=== PATIENT | female | born 1955 | race Caucasian/White ===

== ENCOUNTER 2016-08-19 08:04 | Observation (INO) | payer OTHER ==
[~2016-08-19] VITALS: Ht 167.6 cm; Wt 96.6 kg
[~2016-08-19 08:04] MED LIST: ATIVAN0.5 MG PO; CRESTOR10 MG PO; CYMBALTA60 MG PO; DEXILANT60 MG; DULCOLAX STOOL100 MG PO; DURAGESIC25 MCG TD; FIORICET,ESG1 TABLET PO; FLEXERIL10 MG PO; HYDROCHLOROTHIA25 MG PO; LIDODERM 5% P1 PATCH TD; MIRALAX255 GM PO; MOBIC15 MG PO; OXYCODONE-ACET1 EACH PO; OXYCODONE-APAP1 EAC6 PO; PANTOPRAZOLE SO40 MG PO; SINGULAIR10 MG PO; SUMATRIPTAN SUC50 MG PO; TIZANIDINE HCL4 MG PO; TOPAMAX25 MG PO; TRAMADOL HCL50 MG PO; VITAMIN D-32000 UNIT PO; XANAX0.5 MG PO
[2016-08-19] MEDS ORDERED: VAGIFEM10 MCG VG (08:35)
[2016-08-19 08:36] LABS: BASOPHIL COUNT 0.1 K/uL (0-0.1); EOSINOPHIL (%) 1.6 % (0-5); EOSINOPHIL COUNT 0.1 K/uL (0-0.3); HEMATOCRIT 41.3 % (36.0-46.0); IMMATURE GRANULOCYTE (%) 0.2 % (0.0-0.7); INSTRUMENT ABS NEUTROPHIL CT 1.9 K/uL; LYMPHOCYTE COUNT 2.4 K/uL (1.0-2.8); MCH 28.8 PG (29.0-34.0); MCHC 32.9 G/DL (30.0-36.0); MCV 87.3 FL (83-99); MEAN PLAT.VOLUME 9.2 uM^3 (9.5-12.4); MONOCYTE (%) 9.4 % (3-12); MONOCYTE COUNT 0.5 K/uL (0-0.8); NEUTROPHIL COUNT 1.9 K/uL (1.8-6.4); PLATELET COUNT 236 K/uL (156-360); RBC DIS.WIDTH-CV 12.6 % (11.8-14.6); RBC DIS.WIDTH-SD 40.3 % (39-53); RED BLOOD COUNT 4.73 M/uL (3.80-5.20); WHITE BLOOD COUNT 4.9 K/uL (4.1-10.2)
[2016-08-19] MEDS ORDERED: TOPAMAX25 MG PO (08:42)
[2016-08-19] MEDS ORDERED: IMITREX50 MG PO (08:43)
[2016-08-19 08:47] LABS: INTER. NORMALIZED RATIO 0.9; PROTHROMBIN TIME 9.6 (9.2-11.2); PTT 27.8 (25-32)
[2016-08-19] MEDS ORDERED: ARYMO ER15 MG PO (08:47)
[2016-08-19 09:00] LABS: TROP-I INTERPRETATION NEGATIVE; TROPONIN-I < 0.01 ng/mL (0.0-0.30)
[2016-08-19 09:18] LABS: CHLORIDE 105 mEq/L (99-109); POTASSIUM 3.6 mEq/L (3.7-5.4); SODIUM 141 mEq/L (136-147)
[2016-08-19 09:20] LABS: GLUCOSE 95 mg/dL (70-99)
[2016-08-19 09:21] LABS: ANION GAP 9 MEQ/L (2-14)
[2016-08-19 09:24] LABS: GFR ESTIMATE (CALCULATED) > 59 mL/min/
[2016-08-19 09:25] LABS: UREA NITROGEN (BUN) 8 mg/dL (9-23)
[2016-08-19 11:45] VITALS: BP 136/82
[2016-08-19] MEDS ORDERED: XANAX0.5 MG PO (12:33)
[2016-08-19 16:09] VITALS: BP 118/58
[2016-08-19 16:16] LABS: TROP-I INTERPRETATION NEGATIVE; TROPONIN-I < 0.01 ng/mL (0.0-0.30)
[2016-08-19 19:00] VITALS: BP 122/76
[2016-08-19 22:12] LABS: TROP-I INTERPRETATION NEGATIVE; TROPONIN-I < 0.01 ng/mL (0.0-0.30)
[2016-08-19 23:59] VITALS: BP 122/66
[2016-08-20 04:10] VITALS: BP 116/56
[2016-08-20 07:30] VITALS: BP 127/73
== END 2016-08-20 11:30 | disposition home or self-care (01) ==
LOC: EME → EDBD 08:04 → EDOF 09:51 → 5WEST 09:51
PROVIDERS: Emergency Medicine; Internal Medicine
DX: R07.89 Other chest pain (principal); E87.6 Hypokalemia; R06.02 Shortness of breath; M54.9 Dorsalgia, unspecified; I10 Essential (primary) hypertension; E78.5 Hyperlipidemia, unspecified; M79.7 Fibromyalgia; J45.909 Unspecified asthma, uncomplicated; M19.90 Unspecified osteoarthritis, unspecified site
CPT/HCPCS: 71010; 80048; 84484; 85025; 85610; 85730; 93005; 99202; 99281; 99284; G0378; J1650

== ENCOUNTER 2016-09-10 09:51 | Day surgery (SDC) | payer OTHER ==
[~2016-09-10] VITALS: Ht 160 cm; Wt 95.0 kg
[~2016-09-10 09:51] MED LIST changes: +ARYMO ER15 MG PO; +IMITREX50 MG PO; +LO-DOSE ASPIRIN81 M2 PO; +NITROSTAT0.4 MG SL; +TIZANIDINE HCL4 M1 PO; +VAGIFEM10 MCG VG; +VENTOLIN HFA18 GM IH
[2016-09-10] MEDS ORDERED: ASPIRIN325 MG PO (10:33)
== END 2016-09-10 16:30 | disposition home or self-care (01) ==
LOC: CATH 09:51
DX: R07.89 Other chest pain (principal); R06.02 Shortness of breath; I10 Essential (primary) hypertension; E78.5 Hyperlipidemia, unspecified; E66.9 Obesity, unspecified; Z68.36 Body mass index [BMI] 36.0-36.9, adult; Z79.899 Other long term (current) drug therapy
CPT/HCPCS: C1769; C1887; J1644; J2250; J3010

== ENCOUNTER → 2017-07-09 | Outpatient (CLI) | payer OTHER ==
[~2017-07-09] MED LIST changes: +ASPIRIN325 MG PO
== END | disposition home or self-care (01) ==
LOC: CDC 09:23
DX: Z01.810 Encounter for preprocedural cardiovascular examination (principal); M17.12 Unilateral primary osteoarthritis, left knee; S83.232A Complex tear of medial meniscus, current injury, left knee, initial encounter; I45.10 Unspecified right bundle-branch block; R94.31 Abnormal electrocardiogram [ECG] [EKG]
CPT/HCPCS: 93000